=== PATIENT | male | born 1940 | race Caucasian/White ===

== ENCOUNTER → 2018-05-04 | Outpatient (CLI) | payer OTHER, BC ==
[~2018-05-04] MED LIST: ACCUNEB SO1.25 MG/1 INH; ACETAMINOPHEN325 M1 PO; ASPIRIN EC81 M1 PO; BACTRIM DS TAB1 EACH PO; BAYER CHEWABLE81 MG PO; BISACODYL SUPP10 MG RECTAL; CO Q-10100 MG PO; COLACE100 MG PO; COZAAR 50 MG TA50 M2; CYANOCOBAL1000 MCG/1 IM; FLOMAX0.4 MG PO; GERI-LANTA LIQ355 ML PO; IBUPROFEN 200200 M1 PO; IBUPROFEN 600600 M1 PO; LOSARTAN POTAS100 MG PO; MILK OF MA400 MG/5 M PO; MIRALAX17 GM PO; NIZORAL120 ML; OCUVITE TABLET1 EAC1 PO; PAROXETINE HCL20 MG PO; SENEXON-S TABL1 EACH PO; SENOKOT-S1 TA1 PO; SIMETHICON CHEW80 M1 PO; UNICOMPLEX M TA1 TA1 PO; VERAPAMIL ER240 M1 PO; VITAMIN D35000 UNI1 PO; ZOCOR40 MG PO
== END ==
LOC: SPEECH 09:59 → RAD 09:59
DX: R13.12 Dysphagia, oropharyngeal phase (principal)

== ENCOUNTER 2018-10-15 16:01 | Inpatient (IN) | payer OTHER, BC ==
[~2018-10-15] VITALS: Ht 180.3 cm; Wt 88.1 kg
--- NOTE | ~2018-10-15 | EKG ---
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 : 1940 Requested By: Naun Graff Order Number: [id number] MD: Matthieu Navarrete Measurements Intervals Powell Rate: 90 P: 71 MA: 198 QRS: 38 QRSD: 113 T: 22 QT: 356 QTc: 436 Interpretive Statements Sinus rhythm Borderline T abnormalities, anterior leads Compared to ECG 01/04/2017 16:08:04 T-wave abnormality now present Electronically Signed On 10-16-2018 7:48:40 [employer] by Matthieu Navarrete [email or web address] <ELECTRONICALLY SIGNED> By: Matthieu Navarrete MD, [facility] 10/16/18 0748 35 35 Matthieu Navarrete MD, [facility] /EPI
--- NOTE | ~2018-10-15 | HC ---
[facility] [place] [address] CONSULTATION Name: BERGERLEONARDO SINGER SNEHAL Room #: 202-P ADM IN M.R.#: [id number] Admission: 10/15/18 Attend Phys: Benjy Mario MD Discharge: Date of : 41 Report #: [id number] THIS REPORT FOR: //name// CC: Benjy Conroy HISTORY OF PRESENT ILLNESS: The patient is a 77-year-old male who was brought to the Emergency Department with cough. Apparently, the patient had been coughing for the past 2 weeks. I spoke to his . The patient has had symptoms consistent with Parkinson's disease for over a handful of years. He has been seen at by Dr. Pearson. At one point, the patient was tried on Sinemet, but when this did not work, Dr. Pearson discontinued it. The patient has had a gradual downhill course. His family members have noticed that when he is eating, he never looks down. The patient is really no longer ambulatory. His has noticed that he seems very stiff in the upper body. From time to time, he might have a tremor of his hands or even in his legs. The patient was last seen at approximately 1 year ago. He was given minerals and vitamins and that seemed to help and he was put back on Sinemet, but ultimately, the medication has really done nothing and he is no longer taking it. PAST MEDICAL HISTORY: Small-bowel obstruction, hypertension, hepatitis A gastroesophageal reflux, benign prostatic hypertrophy. PAST SURGICAL HISTORY: Colostomy with revision, bilateral rotator cuff surgery, lysis of adhesions with hernia repair. MEDICATIONS: Simvastatin 40 mg daily, paroxetine 20 mg daily, MiraLax 17 grams b.i.d., losartan 50 mg daily, B12 1000 mcg monthly, Ocuvite daily, senna b.i.d., Flomax 0.4 mg daily, vitamin D3 5000 units daily, albuterol p.r.n., magnesium hydroxide p.r.n., Tylenol p.r.n., Colace p.r.n. ALLERGIES: None. VITAL SIGNS: Temperature is 36.4, pulse rate 66, respiratory rate 18, blood pressure 120/65, bedside pulse oximetry 97% on 2 liters nasal cannula. LABORATORY WORK: White blood cell count 9.4, hemoglobin 11.6, hematocrit 34.8, platelet count 308,000. Urinalysis negative. Chemistry: Sodium 141, potassium 3.7, chloride 109, carbon dioxide 22, BUN 18, creatinine 1.1, glucose 92. NEUROLOGIC: The patient is able to look to the right and left; however, he cannot look up or down. He has intermittent closing of the right eyelid. Motor exam demonstrates rigidity in the upper and lower extremities. The patient also has axial rigidity. In other words, he has rigidity of the neck and trunk. Reflexes are symmetrical throughout. Plantar responses are mute. Coordination [address] [address] CONSULTATION Name: CELINELEONARDO SINGER [facility] Room #: 202-P [facility] IN M.R.#: [id number] Admission: 10/15/18 Attend Phys: Benjy Mario MD Discharge: Date of : 41 Report #: [id number] was not tested. The patient had a very intermittent tremor in the right upper extremity and left lower extremity. 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 I explained to his that sometimes, the patient appears with Parkinson's disease like symptoms that are unresponsive to Sinemet, which is the case here. Then, the abnormal eye movements develop. Because this patient has no vertical gaze, I do feel that he has progressive supranuclear palsy. Unfortunately, there is really no treatment for that. The patient appears to have a very poor cough reflex and is being evaluated by speech therapy. The question will be whether it is safe for the patient to continue to eat or whether he may need something like a feeding tube. However, I do not know whether the patient has advance directive or not, so perhaps this would be against his wishes. I have asked the patient to sign a release of information for his Neurology records at . I thank you for your kind referral of the patient and we will see him tomorrow. <ELECTRONICALLY SIGNED> By: Sheela Winslow DO 10/17/18 1118 [id number] [id number] Sheela Winslow DO /nt
--- NOTE | ~2018-10-15 | HC ---
[facility] [place] [address] CONSULTATION Name: CELINELEONARDO SINGER SNEHAL Room #: 202-P ADM IN M.R.#: [id number] Admission: 10/15/18 Attend Phys: Benjy Mario MD Discharge: Date of : 41 Report #: [id number] THIS REPORT FOR: //name// CC: Benjy Conroy DATE OF SERVICE: 10/19/2018 HISTORY OF PRESENT ILLNESS: A 77-year-old male with history of advanced Parkinson's disease, lives in an assisted living facility, admitted with increased shortness of breath, cough. He was diagnosed with aspiration pneumonia. Noted to have dysphagia secondary to Parkinson's disease. He was seen by Neurology and thought probably have progressive supranuclear palsy. He has been treated with IV Zosyn for his aspiration pneumonia. Speech therapy has been involved. He appears to be improving as he was on pureed honey thickened liquids and now has been advanced to mechanical soft nectar thick liquids. We are seeing him in rehabilitation medicine consultation. PAST MEDICAL HISTORY: Includes Parkinson's and a prior left femoral neck fracture in 2016. He has had a subtotal colectomy with colostomy revision. He has had bilateral rotator cuff tears. MEDICATIONS: Please see the full medication listing. This includes vitamins, herbals, and supplements. ALLERGIES: No known drug allergies. HABITS: No history of tobacco or alcohol abuse. SOCIAL HISTORY: Lives at [facility]. His lives in the independent living section, but he lives in the assisted living section. He premorbidly has utilized a wheelchair and does have a powered wheelchair with an electric reclining back. He was able to assist some with his dressing activities and using a pole, which is a floor to ceiling pole, he was able to help assist with standing. REVIEW OF SYSTEMS: Did not offer any current complaints of chest pain, shortness of breath, abdominal discomfort. PHYSICAL EXAMINATION: GENERAL: A 77-year-old white male in no obvious distress. Occasional close the right eye with some apparent ptosis and the notes that they were being considered for some Botox injections for that right eye. VITAL SIGNS: His temperature is 97.9, pulse 60, respirations 18 and blood pressure 129/83. He moves quite slowly. NEUROLOGIC: Has definite rigidity and bradykinesia. Extraocular movements a [facility] [address] [place] [address] CONSULTATION Name: CELINELEONARDO SINGER [facility] Room #: 202-P [facility] IN M.R.#: [id number] Admission: 10/15/18 Attend Phys: Benjy Mario MD Discharge: Date of : 41 Report #: [id number] significantly abnormal with the ability to gaze laterally and medially, but is unable to look superiorly or inferiorly. He can say some basic words and is able to follow basic commands without difficulty, although he does move slowly. He has evidence of cogwheeling wrists and elbows. Some resting tremulousness. Upper extremity, decreased range of motion at end range with strength probably a grade 3+/5. Lower extremities, no calf swelling. No clonus. He does have rigidity. Strength is probably a grade 3 to 3+/5. He was max assist for sit to stand, was max assist to try to take for side steps with a front-wheeled walker. IMPRESSION: A 77-year-old white male with the following problem list: 1. 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 2. Aspiration pneumonia. 3. Dysphagia secondary to the Parkinson's disease. This appears to be improving. 4. Prior colostomy revision. 5. Urinary tract infection. 6. History of bilateral rotator cuff tears. 7. Premorbidly wheelchair bound, but was able to assist some with his ADLs and mobility. PLAN: We are considering him for an acute in-hospital inpatient rehabilitation stay to further improve his functional independence with mobility, ADLs and swallowing. He does desire to return back to the assisted living facility and his would like for him to return back there as well if possible. We will be checking further regarding a possible acute in-hospital inpatient rehabilitation stay. By: 1316 1455 Dario Casarez MD /[facility]
[2018-10-15 16:01] VITALS: BP 107/60
[2018-10-15 16:19] LABS: ABSOLUTE NEUTROPHILS 11.9 thou/uL (1.4-8.2); BASOPHILS 0.4 % (0.0-2.0); EOSINOPHILS 0.3 % (0.0-3.0); HEMATOCRIT 38.5 % (42.0-52.0); HEMOGLOBIN 12.9 gm/dL (14.0-18.0); LYMPHOCYTES 6.7 % (24.0-44.0); MCH 31.7 pg (26.0-34.0); MCHC 33.7 g/dL (28.0-37.0); MCV 94.1 fL (80.0-100.0); MONOCYTES 6.4 % (1.0-8.0); PLATELET COUNT 318 thou/uL (150-400); POLYS 86.2 % (36.0-66.0); RBC 4.09 mil/uL (4.50-6.00); RDW 12.5 % (10.5-14.5); WBC 13.8 thou/uL (4.0-11.0)
[2018-10-15 16:26] LABS: CALCIUM 9.6 mg/dL (8.5-10.1); CREATININE 1.4 mg/dL (0.7-1.3)
[2018-10-15 17:32] LABS: URINE BILIRUBIN NEGATIVE (Negative); URINE BLOOD NEGATIVE (Negative); URINE CLARITY CLEAR; URINE COLOR YELLOW; URINE GLUCOSE-RANDOM* NEGATIVE (Negative); URINE KETONES NEGATIVE (Negative); URINE LEUKOCYTES-REFLEX NEGATIVE (Negative); URINE NITRITE-REFLEX NEGATIVE (Negative); URINE PROTEIN (DIPSTICK) NEGATIVE (Negative); URINE SPECIFIC GRAVITY 1.015 (1.005-1.035); URINE UROBILINOGEN 0.2 E.U./dl (0.2-1.0)
[2018-10-15 18:10] VITALS: BP 125/47
[2018-10-15 18:18] VITALS: BP 111/60
[2018-10-15 18:46] VITALS: BP 122/60
[2018-10-15 20:30] VITALS: BP 104/48
[2018-10-16 00:10] VITALS: BP 114/67
[2018-10-16 04:30] VITALS: BP 125/74
[2018-10-16 04:32] LABS: HEMATOCRIT 34.8 % (42.0-52.0); HEMOGLOBIN 11.6 gm/dL (14.0-18.0); MCH 31.2 pg (26.0-34.0); MCHC 33.3 g/dL (28.0-37.0); MCV 93.7 fL (80.0-100.0); RBC 3.71 mil/uL (4.50-6.00); RDW 12.7 % (10.5-14.5); WBC 9.4 thou/uL (4.0-11.0)
[2018-10-16 04:33] LABS: CALCIUM 8.7 mg/dL (8.5-10.1); CREATININE 1.1 mg/dL (0.7-1.3); POTASSIUM 3.7 mmol/L (3.5-5.1)
[2018-10-16 08:20] VITALS: BP 121/75
[2018-10-16] MEDS ORDERED: SINEMET 25-1001 EAC1 PO (10:19)
[2018-10-16 11:07] VITALS: BP 120/65
[2018-10-16 21:10] VITALS: BP 121/70
[2018-10-17 04:23] VITALS: BP 127/81
[2018-10-17 05:20] LABS: ABSOLUTE NEUTROPHILS 4.3 thou/uL (1.4-8.2); BASOPHILS 1.1 % (0.0-2.0); EOSINOPHILS 4.5 % (0.0-3.0); HEMATOCRIT 35.4 % (42.0-52.0); HEMOGLOBIN 11.9 gm/dL (14.0-18.0); LYMPHOCYTES 24.1 % (24.0-44.0); MCH 31.6 pg (26.0-34.0); MCHC 33.8 g/dL (28.0-37.0); MCV 93.5 fL (80.0-100.0); MONOCYTES 8.9 % (1.0-8.0); PLATELET COUNT 296 thou/uL (150-400); POLYS 61.4 % (36.0-66.0); RBC 3.78 mil/uL (4.50-6.00); RDW 12.3 % (10.5-14.5)
[2018-10-17 05:30] LABS: CALCIUM 8.6 mg/dL (8.5-10.1); POTASSIUM 3.7 mmol/L (3.5-5.1)
[2018-10-17 07:20] VITALS: BP 122/79
[2018-10-17 11:15] VITALS: BP 98/58
[2018-10-17 15:08] VITALS: BP 116/66
[2018-10-17 20:09] VITALS: BP 98/67
[2018-10-18 04:14] VITALS: BP 124/73
[2018-10-18 07:10] VITALS: BP 127/69
[2018-10-18 11:00] VITALS: BP 127/71
[2018-10-18 15:10] VITALS: BP 119/68
[2018-10-18 19:21] VITALS: BP 124/73
[2018-10-19 04:27] VITALS: BP 112/72
[2018-10-19 11:28] VITALS: BP 129/83
[2018-10-19] MEDS ORDERED: AUGMENTIN 875-1 EACH PO (14:27)
== END 2018-10-19 16:00 | DRG 871 ==
LOC: ER 16:01 → EROBS 18:02 → 2N 18:02
PROVIDERS: Hospitalist; Physician Assistant
DX: A41.9 Sepsis, unspecified organism (principal); J69.0 Pneumonitis due to inhalation of food and vomit; B15.9 Hepatitis A without hepatic coma; N17.9 Acute kidney failure, unspecified; G20 Parkinson's disease; I10 Essential (primary) hypertension; K21.9 Gastro-esophageal reflux disease without esophagitis; R29.6 Repeated falls; E53.8 Deficiency of other specified B group vitamins; N40.0 Benign prostatic hyperplasia without lower urinary tract symptoms; Z93.3 Colostomy status; Z79.899 Other long term (current) drug therapy; Z99.3 Dependence on wheelchair
CPT/HCPCS: 10081

== ENCOUNTER 2018-10-19 14:25 | Inpatient (IN) | payer OTHER, BC ==
[~2018-10-19] VITALS: Ht 180.3 cm; Wt 88.1 kg
--- NOTE | ~2018-10-19 | PLAN ---
[facility] [place] [address] REHAB UNIT PLAN OF CARE Name: LEONARDO BERGER III Room #: 506-1 ADM IN M.R.#: [id number] Admission: 10/19/18 Attend Phys: Dario Casarez MD Discharge: Date of : 41 Report #: [id number] THIS REPORT FOR: //name// CC: Dario Conroy DATE OF SERVICE: 10/21/2018 SUBJECTIVE: The patient is seen back today in followup. He is in no distress. Temperature 97.9, pulse 65, respirations 20, blood pressure 120/77. Lungs sound clear, somewhat diminished. He has the severe extraocular movement deficits with inability to look up or down. He is cooperative with therapies. Transfers are max assist. He was able to ambulate 5 feet in the parallel bars max assist, lower body dressing is dependent with upper body dressing, max assist. He has moderate to severe comprehensive deficits. He is on a pureed diet with nectar thickened liquids. ASSESSMENT: 1. 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 2. Aspiration pneumonia. 3. Dysphagia secondary to Parkinson's disease. 4. Prior colostomy revision. 5. Urinary tract infection. 6. History of bilateral rotator cuff tears. 7. Premorbidly wheelchair bound, but was able to assist some with ADLs and mobility. PLAN: The overall plan of care is based on the preadmission screen, post-admission physician evaluation and information garnered from therapy assessments. 1. Estimated length of stay is probably at least 2-3 weeks. 2. Medical prognosis is reasonably good. 3. Anticipated interventions includes the interdisciplinary acute inpatient rehabilitation program with PT, OT, speech rehab nursing assisting regarding medication management, skin care prophylaxis, bowel and bladder issues and nursing education. Case management is involved as well as the interdisciplinary acute rehabilitation team and the personal consultant physicians. 4. Anticipated functional outcomes would be for the patient to hopefully improve with his basic transfers, so that he is at a level that they can handle him at the assisted living as well as assisting more with his ADLs. He also needs to hopefully improve with his diet where he reaches a dietary level that can be handled within his assisted living. We tried him on a mechanical soft, but he is currently been downgraded to a pureed at the current time along with nectar thickened liquids. 5. Discharge destination would be to his assisted living facility. 6. Expected therapy by discipline includes PT, OT and speech 1 [place] [address] REHAB UNIT PLAN OF CARE Name: LEONARDO BERGER III Room #: 506-1 [facility] IN [facility].#: [id number] Admission: 10/19/18 Attend Phys: Dario Casarez MD Discharge: Date of : 41 Report #: [id number] each five days a week throughout the duration of the acute inpatient rehabilitation stay. <ELECTRONICALLY SIGNED> By: Dario Casarez MD 10/29/18 1144 0841 1422 Dario Casarez MD /RUSTY
--- NOTE | ~2018-10-19 | HC ---
[facility] [place] [address] CONSULTATION Name: LEONARDO BERGER III Room #: 506-1 ADM IN M.R.#: [id number] Admission: 10/19/18 Attend Phys: Dario Casarez MD Discharge: Date of : 41 Report #: [id number] THIS REPORT FOR: //name// CC: Dario Patele Diannenohemi DATE OF SERVICE: 10/24/2018 Neurobehavioral Status Exam ATTENDING PHYSICIAN: Dario Casarez MD OUTSIDE MACHINIST HELPER: Tyler Ayers, PhD CLINICAL PRESENTATION: The patient is a 78-year-old male, admitted to the rehabilitation unit at [facility] for a comprehensive inpatient rehabilitation program to improve functional mobility, activities of daily living, self-care, and mental status secondary to deficits from aspiration pneumonia and severe Parkinson's disease. 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 A complete description of his medical condition, history, and medications can be found in his medical record. Neuropsychological consultation was requested to provide assistance in the assessment of cognitive and emotional status and to provide recommendations as necessary and services as needed. Prior to this most recent admission, he had been living with his in an assisted living placement. He requires assistance for basic and instrumental activities of daily living. During my interview, the patient was unable to provide description of his current level of activity, as well as the reason for hospitalization or family and recent biographical and historical information. His verbal expression is very slow and marked by severe bradykinesia. Decreased auditory comprehension along with severe deficits in verbal expression are noted. TECHNIQUES UTILIZED: Clinical interview, review of medical records, staff consultation and behavioral observation, Mini Mental Status Exam 2 brief version. EXAMINATION FINDINGS: The patient has severe deficits in verbal expression and bradykinesia, which interfere with his ability to process and express himself. He was 2/5 for orientation to time. The patient was 5/5 for orientation to [facility] [address] [place] [address] CONSULTATION Name: LEONARDO BERGER [facility] Room #: 506-1 ADM IN ..#: [id number] Admission: 10/19/18 Attend Phys: Dario Casarez MD Discharge: Date of : 41 Report #: [id number] He was 0/3 for initial registration and immediate recall of 3 items. The patient is showing marked deficits in cognitive functioning. He was able to read and follow a single command. He was 0/5 for serial 7's. The patient's presentation suggests severe cognitive deficits with initial encoding, immediate recall, sustained concentration, and divided attention and executive functioning. Family has not been contacted regarding pre-morbid functioning. 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 Unspecified depressive disorder. RECOMMENDATIONS: The patient has been getting antidepressant medication to assist with mood. A followup interview with his family will be of benefit to clarify the severity of his cognitive deficits and difference between current functioning at baseline prior to his hospitalization. Family were not available at the time of this dictation. The patient will require 24-hour care that includes assistance with financial, nutrition, and medical self-management. 24-hour care should structure and supervision to encourage participation in meeting environmental expectations will be necessary. Thank you very much for allowing me to provide the consultation on this patient. <ELECTRONICALLY SIGNED> By: Tyler Ayers, PhD 11/01/18 1621 1521 2141 Tyler Ayers, PhD /nt
--- NOTE | ~2018-10-19 | HC ---
[facility] [place] [address] CONSULTATION Name: LEONARDO BERGER III Room #: 506-1 ADM IN M.R.#: [id number] Admission: 10/19/18 Attend Phys: Dario Casarez MD Discharge: Date of : 41 Report #: [id number] THIS REPORT FOR: //name// CC: Dario Conroy DATE OF SERVICE: 10/29/2018 PALLIATIVE CARE CONSULTATION: REQUESTING PHYSICIAN: Dr. Casarez and Dr. Rubio. This is a palliative care consultation requested due to history of progressive supranuclear palsy. As you know, the patient is a 78-year-old male who presented initially to [facility] on 10/15/2018 from his assisted living at the [facility] for suspected aspiration pneumonia. He has a history of supranuclear palsy as suspected as he had not responded to medication previously and due to current signs. The patient has had difficulty with expressive aphasia. Additionally, he has had recurrent episodes of dysphagia per his family choking episodes. Most recently, he is now on nectar thin liquids and pureed diet. Their overall concern is whether or not he would be able to have a return to the assisted living and what his overall prognosis is at this time. The patient is communicative; however, it is very minimal. His verbal communication is very difficult to understand, although he can use cues as well. He denies significant pain at this time, appears to not have air hunger. He does admit to overall weakness and does respond appropriately to many of the questions today. PAST MEDICAL HISTORY: Significant for supranuclear palsy, history of likely aspiration, dysphagia, right eye ptosis, obstructive uropathy, colostomy placement with stoma hernia, depression, hyperlipidemia, history of small-bowel obstruction. PAST SURGICAL HISTORY: He has had a rotator cuff surgery on the right side. MEDICATIONS: Currently, albuterol, B12, guaifenesin, omeprazole, Lovenox, senna, doxazosin, D3, Paxil, Lipitor. ALLERGIES: No known drug allergies. CODE STATUS: DNR. FAMILY HISTORY: Noncontributory. [address] [address] CONSULTATION Name: LEONARDO BERGER [facility] Room #: 506-1 ADM IN M.R.#: [id number] Admission: 10/19/18 Attend Phys: Dario Casarez MD Discharge: Date of : 41 Report #: [id number] SOCIAL HISTORY: No current smoking, drinking, or illicit drug use. Spouse is present as well as multiple family members including 2 sons and daughter. REVIEW OF SYSTEMS: Again, difficult to obtain at this time, but denied. Review of systems obtained in [facility]. PHYSICAL EXAMINATION: VITAL SIGNS: Temperature 36.7, pulse 66, respirations 28, blood pressure 121/71, 93%. He was currently on room air. GENERAL: The patient appears to be alert. His attention level at times may be altered, but he does answer many questions appropriately. HEENT: He has no scleral icterus, no conjunctival injection. CARDIOVASCULAR: Regular rate and rhythm without murmur. LUNGS: Clear to auscultation bilaterally. No wheezes, rales or rhonchi, though did not auscultate fully on lower lobes. ABDOMEN: Appears soft and nontender to palpation x 4. EXTREMITIES: He does not have significant cogwheeling, although he demonstrates some rigidity upper extremities bilaterally. Certainly, he demonstrates rigidity in lower extremities. He has some difficulty with overall initiation of movement. His core strengthening overall causes some difficulty with movement. He requires significant assistance to sit at bedside. The patient does appear to have overall loss of strength. NEUROLOGIC: He is very quiet in his speech and also has difficulty with expressing words overall. LABORATORY DATA: 10/15/2018, his creatinine was 1.4, hemoglobin 12.9. ASSESSMENT AND PLAN: 1. Probable supranuclear palsy. Appreciate Dr. Rubio's input with regards to his overall condition. I agree that this carries a poor prognosis, whether this is Parkinson's or supranuclear palsy at this time. Obviously, the patient has not responded to medication in the past likely further clarifying that this is not a typical presentation of Parkinson's. I did have a significant discussion with family with regards to his code status confirmed as DNR code status regarding the need for long-term care in the future, regardless of whether he were to progress towards a [facility] facility or whether he was going to hospice care services. I did explain thoroughly what [facility]cc involved as well as what hospice care involved as well as what palliative care involved. Did discuss that he would likely benefit significantly from hospice at some point in the near future. Did discuss that he does certainly qualify for their services at this point in time given his overall condition, I believe that he would qualify under his movement disorder. I did discuss that the patient at this current point in time may additionally benefit from some therapy, but it is difficult to tell. They feel that he has made some strides with regards to his movement and possibly with regards to communication that may be as a result of [facility] [address] [place] [address] CONSULTATION Name: LEONARDO BERGER III Room #: 506-1 ADM IN M.R.#: [id number] Admission: 10/19/18 Attend Phys: Dario Casarez MD Discharge: Date of : 41 Report #: [id number] improvement from his previous delirium, it is difficult to say. I did discuss it is very unlikely that we will see significant strides or improvement in his overall condition. Did discuss if we are pursuing [facility]cc that it would likely be beneficial to pursue in a location where he could transition to long-term care. I did discuss with the patient himself that he would need to pursue long-term care and could no longer be in an assisted living at this time due to the safety of the facility that he was currently at and the addition of additional needs that he will have. I spent approximately 1-1/2 hours discussing with both family, with patient and with case management. I also discussed potential facilities for the patient. I discussed again what overall care options we had that also included a PEG tube in the future. I discussed in his particular case in the case of patients that have progressive neurologic disease, the PEG tube has not been shown to be improving both quality of life and of the longevity. I discussed that there are additional benefits from seeking comfort and even he may in the future if desired seek to change his pureed diet, although he seems to be tolerating well at this time. 2. Aspiration pneumonia and dysphagia. Again, reason for presentation. Discussed this would be likely the origin of further illness in the future and discussed at that point we would maybe consider whether or not he would require antibiotics and whether that would be in his DICTATION ENDS HERE. By: [id number] Phoenix Ricks DO /lary
--- NOTE | ~2018-10-19 | H ---
[facility] [place] [address] HISTORY AND PHYSICAL Name: LEONARDO BERGER III Room #: 506-1 ADM IN M.R.#: [id number] Admission: 10/19/18 Attend Phys: Dario Casarez MD Discharge: Date of : 41 Report #: [id number] THIS REPORT FOR: //name// CC: Dario Conroy DATE OF SERVICE: 10/19/2018 POSTADMISSION PHYSICIAN EVALUATION HISTORY OF PRESENT ILLNESS: Please see my consult note of this patient from yesterday and Jenni Elmore's history and physical. The patient has advanced Parkinson's disease. He was living in an assisted living facility, admitted with a diagnosis of aspiration pneumonia. Noted to have dysphagia secondary to Parkinson's disease. He was seen by Neurology and thought to probably have progressive supranuclear palsy. He was treated with IV Zosyn for his aspiration pneumonia. He was advanced to nectar thickened liquids. He has had a significant functional decline in his premorbid status and he has not been admitted for acute in-hospital inpatient rehabilitation. PAST MEDICAL HISTORY, ALLERGIES, AND SOCIAL HISTORY: Please see my consult from yesterday as well as Jenni Elmore's dictation. MEDICATIONS: Please see the full medication listing. This includes vitamins, herbals, and supplements. REVIEW OF SYSTEMS: No current complaints of chest pain, shortness of breath or abdominal discomfort. Again, please see his full H and P dictation. PHYSICAL EXAMINATION: GENERAL: A 77-year-old male, who is in no obvious distress. VITAL SIGNS: Temperature 98.3, pulse 66, respirations 20, blood pressure 127/89. HEENT: The patient is in no distress. He has evidence of masked facies. He moves slowly. Limited verbalizations. Extraocular movements were significantly abnormal with ability to gaze laterally and medially, but unable to look superiorly or inferiorly. CHEST: Decreased breath sounds. CARDIOVASCULAR: Sounded regular rate and rhythm. ABDOMEN: He has the colostomy. NEUROLOGIC: He has some resting tremulousness of his upper extremities with cogwheeling wrists and elbows, move slowly with decreased range of motion at end range. Strength is probably a 3+/5 upper extremities. Lower extremities, he does have rigidity. Strength is probably a grade 3-3+/5. Max assist sit to stand, max assist to try to take a few steps with a front-wheeled walker. [facility] [address] [place] [address] HISTORY AND PHYSICAL Name: LEONARDO BERGER III Room #: 506-1 [facility] IN ..#: [id number] Admission: 10/19/18 Attend Phys: Dario Casarez MD Discharge: Date of : 41 Report #: [id number] ASSESSMENT: A 77-year-old white male with the following problem list: 1. 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 2. Aspiration pneumonia. 3. Dysphagia secondary to Parkinson's disease. 4. Prior colostomy revision. 5. Urinary tract infection. 6. History of bilateral rotator cuff tears. 7. Premorbidly wheelchair bound, but able to assist some with ADLs and mobility. PLAN: The patient admitted for acute in-hospital inpatient rehabilitation. From a post admission physician evaluation perspective there are no relevant changes since the preadmission screening. Please see the review of the prior and current medical and functional conditions and comorbidities. Please see the patient's previous and current functional status. As far as risk of complications, the patient has multiple medical comorbidities as noted above. Initial plan of care involves the interdisciplinary acute inpatient rehabilitation program with goal of maximizing the patient's functional independence, so that he can hopefully return back to his prior living situation. He was living in an assisted living facility in the goals to hopefully achieve a functional level that he can return back there. Prognosis is reasonably good with estimated length of stay probably at least 2-3 weeks. Potential barriers would include his multiple medical comorbidities and decreased functional status. We need to get him assisting with some of his dressing activities, try to do some basic standing and improvement with transfers, so that he can again be cared for in the assisted living situation. This diagnosis is appropriate for an acute in-hospital inpatient rehabilitation stay. He meets medical necessity criteria. He does have the tolerance for therapies and has appropriate discharge goals back to the home setting. <ELECTRONICALLY SIGNED> By: Dario Casarez MD 10/29/18 1144 1147 1207 Dario Casarez MD /nt
--- NOTE | ~2018-10-19 | H ---
[facility] [place] [address] HISTORY AND PHYSICAL Name: LEONARDO BERGER III Room #: 506-1 ADM IN M.R.#: [id number] Admission: 10/19/18 Attend Phys: Dario Casarez MD Discharge: Date of : 41 Report #: [id number] THIS REPORT FOR: //name// CC: Dario Conroy DATE OF SERVICE: 10/19/2018 HISTORY OF PRESENT ILLNESS: This is a 77-year-old gentleman who presented to the hospital with increased shortness of breath and cough. He was found to have aspiration pneumonia and dysphagia secondary to his Parkinson's disease premorbidly. He was evaluated by Neurology and thought to have probable progressive supranuclear palsy. He has been treated with IV antibiotics and has been transitioned to an oral antibiotic. He is on a pureed diet with thickened liquids. Due to his change in functional mobility, he has admitted to acute inpatient rehabilitation. Today, the patient reports improvement of shortness of air and cough. He denies chest pain. He denies abdominal pain or nausea. He denies constipation or dysuria. His ostomy is having actually more liquid stool than is normal for him. He denies leg swelling. He denies any acute pain. He denies headache or dizziness. PAST MEDICAL HISTORY: Premorbid Parkinson's, history of left femoral neck fracture in 2016, subtotal colectomy with colostomy revision, history of rotator cuff repair and bilateral rotator cuff tears. ALLERGIES: No known drug allergies. MEDICATIONS: Vitamin B12 1000 mcg IM monthly, MiraLax 17 grams at dinner, senna 8.6 mg twice a day p.r.n., doxazosin 1 mg at breakfast, Paxil 20 mg daily, Ocuvite eye drops daily, vitamin D 5000 units daily, atorvastatin 20 mg at bedtime, Augmentin 875 twice a day for 10 doses, milk of mag p.r.n., albuterol p.r.n., Colace p.r.n., Tylenol 650 q.4h. p.r.n. CODE STATUS: No code. HABITS: No history of tobacco, alcohol or illicit drug use. SOCIAL HISTORY: The patient lives at [facility]. His lives in the independent living at [facility]. He premorbidly utilized a wheelchair and does have a power wheelchair with an electric reclining back. He was able to assist with his dressing and with standing by using a floor to ceiling pole. His IADLs were provided. REVIEW OF SYSTEMS: Remainder of his 14-point review of systems is negative except as listed in HPI. [address] [address] HISTORY AND PHYSICAL Name: LEONARDO BERGER [facility] Room #: 506-1 ADM IN M.R.#: [id number] Admission: 10/19/18 Attend Phys: Dario Casarez MD Discharge: Date of : 41 Report #: [id number] PHYSICAL EXAMINATION: VITAL SIGNS: Blood pressure 127/89, respirations 20, pulse is 66, temperature 98.3, 95% oxygen on room air. GENERAL: He is awake, alert. He is oriented. He is in no acute distress. HEAD: Normocephalic. EYES: He tends to keep his right eye shut, he says due to discomfort. After further questioning, his daughter reports that he saw Ophthalmology prior to admission and they were going to do a Botox injection for the right eye to see if it would improve the right eyelid droop. EOMs are intact. ENT: No sinus tenderness, no pharyngitis. CHEST: Lungs are diminished in the bases. HEART: Regular rate and rhythm. ABDOMEN: Bowel sounds are positive, soft, nontender. He does have a left colostomy with loose liquid stool output. GENITOURINARY: No CVA tenderness. He was wearing a male external catheter to dependent drainage overnight due to urinary incontinence. EXTREMITIES: No lower extremity edema. He has significant rigidity in bilateral upper and lower extremities. He has negative Homans sign. He was unable to lift lower extremities and to gravity while sitting in the wheelchair. Bilateral upper extremities, he has decreased functional range of motion due to bilateral rotator cuff tears. He does have noted tremors in his hands, positive cogwheeling. NEUROLOGIC: He can follow basic commands, very soft spoken speech, transfers sit to stand is max assist of 2. SKIN: Warm, dry and intact. LABORATORY DATA: From 10/20/2018, WBC 7.2, hemoglobin 13, hematocrit 38.4, platelets 346. Sodium 139, potassium 3.9, BUN 16, creatinine 1.0, calcium 9.3. ASSESSMENT: 1. 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 2. Aspiration pneumonia. 3. Dysphagia secondary to the Parkinson's disease. 4. Urinary tract infection. 5. Right eye ptosis. 6. Prior colostomy. 7. History of bilateral rotator cuff tears. 8. Premorbid wheelchair bound status. 9. Urinary retention. 10. Depression. 11. Hyperlipidemia. PLAN: The patient has been admitted to acute inpatient rehabilitation unit for physical, occupational and speech therapies. He would like to return to assisted living apartment and to do so, he will have to be on a regular solid consistency diet. His facility cannot provide a pureed consistency and [address] [place] [address] HISTORY AND PHYSICAL Name: LEONARDO BERGER III Room #: 506-1 ADM IN M.R.#: [id number] Admission: 10/19/18 Attend Phys: Dario Casarez MD Discharge: Date of : 41 Report #: [id number] therefore, he would have to move. He will have his hospitalist services continue to follow for acute medical management. He will have geriatric services follow along with Neuropsychology consultation. He will have a team conference on Friday for discharge planning needs. He will continue his current diet with nectar thick liquids. Please see extensive orders. <ELECTRONICALLY SIGNED> By: AIDAN Menezes 10/30/18 1508 [id number] [id number] AIDAN Menezes /nt
[~2018-10-19 14:25] MED LIST changes: +SINEMET 25-1001 EAC1 PO
[2018-10-19] MEDS ORDERED: AUGMENTIN 875-1 EACH PO (14:27)
[2018-10-19 19:45] VITALS: BP 120/85
[2018-10-19 20:07] VITALS: BP 129/83
[2018-10-20 06:01] LABS: HEMATOCRIT 38.4 % (42.0-52.0); MCH 31.7 pg (26.0-34.0); MCHC 33.9 g/dL (28.0-37.0); MCV 93.3 fL (80.0-100.0); RBC 4.11 mil/uL (4.50-6.00); RDW 12.6 % (10.5-14.5); WBC 7.2 thou/uL (4.0-11.0)
[2018-10-20 06:08] LABS: CALCIUM 9.3 mg/dL (8.5-10.1); POTASSIUM 3.9 mmol/L (3.5-5.1)
[2018-10-20 07:20] VITALS: BP 127/89
[2018-10-20 19:16] VITALS: BP 120/77
[2018-10-21 07:30] VITALS: BP 100/61
[2018-10-21 19:47] VITALS: BP 120/66
[2018-10-22 07:30] VITALS: BP 115/72
[2018-10-22 09:15] VITALS: BP 115/79
[2018-10-22 20:27] VITALS: BP 121/82
[2018-10-23 08:30] VITALS: BP 131/78
[2018-10-23 20:10] VITALS: BP 140/86
[2018-10-24 20:20] VITALS: BP 120/70
[2018-10-25 07:30] VITALS: BP 143/73
[2018-10-25 19:32] VITALS: BP 125/71
[2018-10-26 05:46] LABS: BASOPHILS 1.4 % (0.0-2.0); EOSINOPHILS 7.9 % (0.0-3.0); HEMATOCRIT 39.6 % (42.0-52.0); HEMOGLOBIN 13.1 gm/dL (14.0-18.0); LYMPHOCYTES 39.6 % (24.0-44.0); MCH 30.9 pg (26.0-34.0); MCHC 33.2 g/dL (28.0-37.0); PLATELET COUNT 328 thou/uL (150-400); POLYS 41.1 % (36.0-66.0); RBC 4.26 mil/uL (4.50-6.00); RDW 12.8 % (10.5-14.5); WBC 7.3 thou/uL (4.0-11.0)
[2018-10-26 05:59] LABS: CALCIUM 9.4 mg/dL (8.5-10.1)
[2018-10-26 06:51] VITALS: BP 126/69
[2018-10-26 19:57] VITALS: BP 126/67
[2018-10-27 08:57] VITALS: BP 121/63
[2018-10-27 19:31] VITALS: BP 126/83
[2018-10-28 09:11] VITALS: BP 129/76
[2018-10-28 19:29] VITALS: BP 121/77
[2018-10-29 07:30] VITALS: BP 117/85
[2018-10-29 20:45] VITALS: BP 120/69
[2018-10-30 20:00] VITALS: BP 125/78
[2018-10-31 07:30] VITALS: BP 124/86
[2018-10-31 20:15] VITALS: BP 130/72
[2018-11-01 07:40] VITALS: BP 120/72
[2018-11-01 20:01] VITALS: BP 116/68
[2018-11-02 09:00] VITALS: BP 123/71
[2018-11-02 19:38] VITALS: BP 123/76
[2018-11-03 09:30] VITALS: BP 121/83
[2018-11-03 19:42] VITALS: BP 108/70
[2018-11-04 07:55] VITALS: BP 124/67
[2018-11-04 08:55] VITALS: BP 124/67
[2018-11-04] MEDS ORDERED: ARTIFICIAL TEA1 EACH OPHTHALMIC (09:47)
== END 2018-11-04 15:40 | DRG 56 ==
PROVIDERS: Nurse Practitioner; Physical Medicine & Rehabilitation
DX: G20 Parkinson's disease (principal); J69.0 Pneumonitis due to inhalation of food and vomit; N39.0 Urinary tract infection, site not specified; R13.10 Dysphagia, unspecified; E78.5 Hyperlipidemia, unspecified; R53.81 Other malaise; Z66 Do not resuscitate; H02.401 Unspecified ptosis of right eyelid; R33.9 Retention of urine, unspecified; F32.9 Major depressive disorder, single episode, unspecified; K43.5 Parastomal hernia without obstruction or gangrene; F02.80 Dementia in other diseases classified elsewhere, unspecified severity, without behavioral disturbance, psychotic disturbance, mood disturbance, and anxiety; Z99.3 Dependence on wheelchair; Z93.3 Colostomy status; G83.9 Paralytic syndrome, unspecified
CPT/HCPCS: 10112

== ENCOUNTER 2018-11-25 20:08 | Inpatient (IN) | payer OTHER, BC ==
[~2018-11-25] VITALS: Ht 177.8 cm; Wt 83.0 kg
--- NOTE | ~2018-11-25 | HC ---
[facility] [place] [address] CONSULTATION Name: BERGERLEONARDO LUCRECIA III Room #: 213-P ADM IN M.R.#: [id number] Admission: 11/25/18 Attend Phys: Abdirahman Mace MD Discharge: Date of : 41 Report #: [id number] THIS REPORT FOR: //name// CC: Abdirahman Conroy Palliative Care Consultation REASON FOR CONSULTATION: Palliative care. CHIEF COMPLAINT: The patient is here for pneumonia. HISTORY OF PRESENT ILLNESS: The patient is a 78-year-old male who presented on the for what we suspect is aspiration pneumonia of recurrent origin, likely due to his longstanding history of supranuclear palsy. Unfortunately, the patient has had a recent admission for pneumonia of aspiration type and at that time, I had consulted on this patient's care, had discussed what available measures were for the patient. They decided to pursue a fci placement at [facility]. He was advancing his diet, but unfortunately appeared to have an aspiration episode, although this was unwitnessed certainly. The patient has subsequently had worsening of his mental status and also worsening dyspnea, although he is stable today on nasal cannula. The patient's family requested consultation upon his admission. They are concerned about him having not had a significant recovery while doing rehabilitation. PAST MEDICAL HISTORY: This is significant for supranuclear palsy. Also history of recurrent aspiration pneumonia. He has a history of small bowel obstructions and has had a colostomy placed. Also history of hypertension, BPH. PAST SURGICAL HISTORY: Right rotator cuff and left rotator cuff repairs, hernia repair in 2014, colostomy placement and reversal. SOCIAL HISTORY: Never smoker, never alcohol use. Spouse is present at today's interview, as well as son and other family members. MEDICATIONS: Prior to admission, DuoNebs, simvastatin, Paxil 20 mg daily, Flomax 0.4 mg daily, albuterol. ALLERGIES: No known drug allergies. CODE STATUS: DNR. REVIEW OF SYSTEMS: Difficult to obtain given his paucity of speech and also dysphonia, but he denies pain of chest. He denies shortness of breath. Denies abdominal pain. Denies nausea. Denies constipation. PHYSICAL EXAMINATION: [facility] [address] [place] [address] CONSULTATION Name: LEONARDO BERGER [facility] Room #: 213-[facility] IN [facility].#: [id number] Admission: 11/25/18 Attend Phys: Abdirahman Mace MD Discharge: Date of : 41 Report #: [id number] VITAL SIGNS: Temperature 36.7, pulse 80, respirations 20, blood pressure 139/79, 94% on nasal cannula. GENERAL: The patient is alert. He appears to be oriented at least to self. It is difficult to say otherwise on place or time. HEENT: He has difficulty opening his right eye, but is able to do so with great effort. Again, he has masked expressions currently. NEUROLOGIC: He does have cogwheeling present and some rigidity bilaterally upper extremity and the presence of tremor noted. CARDIOVASCULAR: He has regular rate and rhythm at this time. RESPIRATORY: He has diffuse rales and rhonchi throughout his lungs. LABORATORY DATA: Reviewed and noted to have hemoglobin 12.8, potassium 3.2, creatinine of 1.2. ASSESSMENT AND PLAN: 1. Pneumonia, suspect aspiration, extensive discussion of approximately 45 minutes upon his discussion of recurrent admission if he would desire hospitalization, if he desires to have further therapy, if he desires to have antibiotics in the future, if recurrent aspiration, discussed the high likelihood of this occurring. Given his present medical condition and given the recurrence of aspiration that we witnessed, discussed extensively with his family many questions regarding this. He still desires no feeding tube. Family is also agreeing with this. They desire to continue rehabilitation potentially, but they are deciding on this at this point in time. We have discussed hospice extensively. They appear to be amenable to hospice after her rehab admission. They did not at this point in time request to have rehospitalization in the future and did not desire to have changed from pureed and thickened fluids and therefore may not have changes back to mechanical soft as he was previous. He appears to tolerate this diet well and does not have any concerns about the quality of life associated with this. I discussed again all options present. They will be deciding further with regards to this, but do desire to have treatment for this current pneumonia until felt to be ready for discharge to a skilled facility. They do desire to return to [facility], but again I do believe that they would not request rehospitalization in the future. 2. Supranuclear palsy. Again, discussed the likelihood of this recurring. They are understanding of this and desire interventions as discussed above. He is in no significant discomfort at this time, so I do not believe any changes in medical care are needed currently. The patient appears to have understanding of this, although it is difficult to say how much he is getting at this current point in time. His family is certainly understanding of it and I have discussed extensively with them with regards to their questions. [facility] [address] [place] [address] CONSULTATION Name: LEONARDO BERGER III Room #: 213-P ADM IN M.R.#: [id number] Admission: 11/25/18 Attend Phys: Abdirahman Mace MD Discharge: Date of : 41 Report #: [id number] Thank you very much for this consultation. By: [id number] Phoenix Ricks DO /nt
[2018-11-25 20:08] VITALS: BP 104/66
[~2018-11-25 20:08] MED LIST changes: +ARTIFICIAL TEA1 EACH OPHTHALMIC; +AUGMENTIN 875-1 EACH PO
[2018-11-25 20:28] LABS: ABSOLUTE NEUTROPHILS 6.7 thou/uL (1.4-8.2); BASOPHILS 0.5 % (0.0-2.0); EOSINOPHILS 0.3 % (0.0-3.0); HEMATOCRIT 38.2 % (42.0-52.0); HEMOGLOBIN 12.8 gm/dL (14.0-18.0); LYMPHOCYTES 22.9 % (24.0-44.0); MCH 31.1 pg (26.0-34.0); MCHC 33.4 g/dL (28.0-37.0); MCV 93.1 fL (80.0-100.0); MONOCYTES 9.4 % (1.0-8.0); PLATELET COUNT 267 thou/uL (150-400); POLYS 66.9 % (36.0-66.0); RDW 13.2 % (10.5-14.5)
[2018-11-25 20:37] LABS: ANION GAP 10 mmol/L (7-16); BUN 19 mg/dL (7-18); CALCIUM 9.4 mg/dL (8.5-10.1); CHLORIDE 105 mmol/L (98-107); CO2 24 mmol/L (21-32); CREATININE 1.2 mg/dL (0.7-1.3); GLUCOSE 117 mg/dL (74-106); POTASSIUM 3.2 mmol/L (3.5-5.1); SODIUM 139 mmol/L (136-145)
[2018-11-25 20:37] LABS: BE(vivo) -2.3 mmol/L (-2 to +3); HCO3 20.9 mmol/L (22.0-26.0); PCO2 31.4 mmHg (35.0-45.0); PO2 64.5 mmHg (80.0-100.0); pH 7.441 (7.360-7.450); sO2 93.6 % (92.0-98.0)
[2018-11-25 20:49] LABS: ALBUMIN 3.1 g/dL (3.4-5.0); SGOT 22 U/L (15-37); SGPT 17 U/L (30-65); TOTAL BILIRUBIN 0.5 mg/dL (<0.1-1.0); TOTAL PROTEIN 7.3 g/dL (6.4-8.2); TROPONIN-I <0.06 ng/mL (<0.06)
[2018-11-25 22:00] LABS: URINE CLARITY CLEAR; URINE COLOR YELLOW
[2018-11-25 22:01] LABS: URINE BILIRUBIN NEGATIVE (Negative); URINE BLOOD 1+ (Negative); URINE GLUCOSE-RANDOM* NEGATIVE (Negative); URINE KETONES TRACE (Negative); URINE LEUKOCYTES-REFLEX NEGATIVE (Negative); URINE NITRITE-REFLEX NEGATIVE (Negative); URINE PROTEIN (DIPSTICK) NEGATIVE (Negative)
[2018-11-25 22:10] LABS: BACTERIA-REFLEX 1-9 Few /HPF (None Seen); MUCUS 0-3 Light strn/LPF (None Seen); SQUAMOUS 0-3 Few /LPF (0-3); URINE WBC-REFLEX 0-5 Rare /HPF (0-5)
[2018-11-25 22:11] LABS: CASTS None Seen /LPF (None Seen); CRYSTALS None Seen /LPF (None Seen)
[2018-11-26] VITALS (7 sets, daily range): BP systolic 104–139; BP diastolic 60–79
[2018-11-26] MEDS ORDERED: IPRATROPIU0.2 MG/1 M INH (02:54)
--- NOTE | 2018-11-26 02:55 | NUR ---
PT ARRIVED UNIT AT ABOUT 0130. PT AWAKE BUT UNABLE TO ANSWER QUESTIONS OR EFFECTIVELY FOLLOW COMMANDS. DAUGHTER AT BEDSIDE AND ABLE TO ANSWER/PROVIDE SOME INFORMATION. PT ABLE TO GESTURE WITH THUMB IF IN PAIN. NO PAIN INDICATED. PT SLEEPING. WILL CONTINUE TO CLOSLY MONITOR.
--- NOTE | 2018-11-26 08:13 | EKG ---
[place] [address] [address] [facility] [place] [address] ELECTROCARDIOGRAM REPORT Name: LEONARDO BERGER [facility] Room #: 213-P ADM IN M.R.#: [id number] Admission: 11/25/18 Attend Phys: Abdirahman Mace MD Discharge: Date of : 41 Report #: [id number] THIS REPORT FOR: //name// [facility] ED Test Date: 2018-11-25 Test Time: 20:21:10 Pat Name: LEONARDO BERGER Department: Room: 213 Gender: M Refurbish Technician: Marlen WINSTON : 1940 Requested By: Savannah Cueva Order Number: [id number] MD: Matthieu Navarrete Measurements Intervals [place] Rate: 87 P: 51 IN: 203 QRS: 45 QRSD: 114 T: 38 QT: 384 QTc: 462 Interpretive Statements Sinus rhythm Abnormal R-wave progression, early transition nonspecific T wave abnormality Baseline wander in lead(s) V3 Compared to ECG 10/15/2018 16:36:06 No gross changes Electronically Signed On 11-26-2018 8:12:52 FINGERPRINTER by Matthieu Navarrete [email or web address] <ELECTRONICALLY SIGNED> By: Matthieu Navarrete MD, [facility] 11/26/18811 20 20 Matthieu Navarrete MD, [facility] /EPI
--- NOTE | 2018-11-26 15:12 | NUR ---
ASSUMED CARE AT SHIFT CHANGE. PT ALERT, ANSWERING YES AND NO QUESTIONS. PER FAMILY THIS IS PT'S BASELINE COGNITIVE STATUS. PT CONTINUES WITH CONGESTIVE COUGH, POOR EFFORT WITH NO SECRETIONS EXPELLED BY COUGHING. SPEECH EVAL TODAY, REMAINS NPO PER SPEECH FOR TODAY, WILL EVALUATE AGAIN TOMORROW. PHYSICAL THERAPY TO EVAL PT TODAY WELL. FAMILY REQUESTING DR ROSS CONSULT ALSO DUE TO PT STATUS. IV ATB CONTINUE, ASSESSMENTS PER CHART. NO BM TODAY SO FAR. WILL BLADDER SCAN AT 1600 IF NO VOIDING.
--- NOTE | 2018-11-26 15:28 | NUR ---
Case opened to follow for dc planning. Sanitation Worker visited with the pt, his spouse and his brother and sister who were at bedside today. The pt confirms he is currently in the skilled rehab at [facility]. He was dc'd there from here on 11/04/18. He plans on returning there at [place] to continue his therapy. Will ask for pt/ot evals and have the dc conservation planner fax admissions an update. Sanitation Worker confirmed with [facility] that the pt is still using his skilled medicare benefits at this time. They can accept him for readmission when medically stable. Will follow.
--- NOTE | 2018-11-26 16:46 | NUR ---
PT. CURRENTLY A RESIDENT AT [facility] FAXED CLINICAL UPDATE TO FACILITY AND LEFT MSG WITH NICHO IN ADM, OF UPDATE FAXED. DCP TO FOLLOW.
--- NOTE | 2018-11-27 04:20 | NUR ---
ASSUMED PT CARE AT 1900. PT CONFUSED, RESPONDS BEST TO YES/NO QUESTIONS, ABLE TO FOLLOW SIMPLE COMMANDS. VITAL SIGNS STABLE, ASSESSMENT CHARTED. PRECATH VOLUME PER BLADDER SCAN WAS ABOUT 1000ML. PT STRAIGHT CATH, 1300ML OUT. NO COMPLAINTS OF PAIN. RESTED WELL THROUGH THE NIGHT. HOURLY ROUNDING COMPLETED. Q2H TURNS. PROGRESSING TOWARD PLAN OF CARE. WILL CONTINUE TO MONITOR.
[2018-11-27 04:38] VITALS: BP 129/74
[2018-11-27 05:19] LABS: ABSOLUTE NEUTROPHILS 4.2 thou/uL (1.4-8.2); EOSINOPHILS 5.5 % (0.0-3.0); HEMATOCRIT 35.7 % (42.0-52.0); MCH 31.5 pg (26.0-34.0); MCHC 33.5 g/dL (28.0-37.0); MCV 93.9 fL (80.0-100.0); MONOCYTES 9.8 % (1.0-8.0); PLATELET COUNT 266 thou/uL (150-400); POLYS 53.7 % (36.0-66.0); RBC 3.81 mil/uL (4.50-6.00); WBC 7.8 thou/uL (4.0-11.0)
[2018-11-27 05:32] LABS: CALCIUM 8.7 mg/dL (8.5-10.1); POTASSIUM 3.6 mmol/L (3.5-5.1)
[2018-11-27 08:00] VITALS: BP 123/71
--- NOTE | 2018-11-27 12:29 | NUR ---
Bladder status - Bladder scan show 346ml at 6hrs from last cath. Straight cath produced 300 out. Pt unable to urinate when instructed. Flomax given per speech this am as pt high risk aspiration. Will await diet orders.
[2018-11-27 16:00] VITALS: BP 127/73
[2018-11-27 19:08] VITALS: BP 130/83
[2018-11-28 04:40] VITALS: BP 138/62
[2018-11-28 05:40] LABS: HEMOGLOBIN 12.1 gm/dL (14.0-18.0); MCHC 34.5 g/dL (28.0-37.0); MCV 92.8 fL (80.0-100.0); RBC 3.77 mil/uL (4.50-6.00); RDW 12.7 % (10.5-14.5); WBC 5.8 thou/uL (4.0-11.0)
[2018-11-28 05:54] LABS: CALCIUM 8.7 mg/dL (8.5-10.1); POTASSIUM 3.5 mmol/L (3.5-5.1)
--- NOTE | 2018-11-28 07:01 | NUR ---
ASSUMED PT CARE AT 1900 WITH NO SIGN OF DISTRESS NOTED IN PT. PT IS ALERT AND DENIES ANY PAIN. SCHEDULED MEDS ADMINISTERED TO PT. VITAL SIGNS STABLE. NURSING TO CONTINUE POC. DENIES ANY FURTHER NEEDS AT THIS TIME.
[2018-11-28 07:07] VITALS: BP 130/73
[2018-11-28 13:00] VITALS: BP 136/80
[2018-11-28 16:00] VITALS: BP 133/85
[2018-11-28 20:30] VITALS: BP 130/82
[2018-11-29 04:30] VITALS: BP 136/79
--- NOTE | 2018-11-29 04:47 | NUR ---
AWAKE ORIENTED TO SELF, BIRTHDATE AND PLACE. REORIENTED TO MONTH AND YEAR, OBEYS COMMAND. MODERATE BOOT TURNER ON BOTH HANDS.ABLE TO RAISE BOTH LEGS AGAINST GRAVITY. DEMNIES PAIN, SR ON THE MONITOR. COARSE LUNG SOUNDS, ON ROOM AIR, NON PRODUCTIVE COUGH NOTED. COLOSTOMY BAG CLEAN AND INTACT. INCONTINENT WITH BLADDER. NSS + 20 MEQS KCL AT 50 ML/HOUR INFUSING WELL AT THE LEFT FOREARM. TURNING EVERY 2 HOURS DONE, ORAL CARE RENDERED. MAINTAINED ON ASPIRATION AND FALL PRECAUTION. FF UP POC.
[2018-11-29 05:50] LABS: ABSOLUTE NEUTROPHILS 3.1 thou/uL (1.4-8.2); BASOPHILS 0.7 % (0.0-2.0); EOSINOPHILS 8.7 % (0.0-3.0); HEMATOCRIT 36.4 % (42.0-52.0); HEMOGLOBIN 12.3 gm/dL (14.0-18.0); LYMPHOCYTES 28.7 % (24.0-44.0); MCH 31.6 pg (26.0-34.0); MCHC 33.9 g/dL (28.0-37.0); MCV 93.1 fL (80.0-100.0); MONOCYTES 10.2 % (1.0-8.0); PLATELET COUNT 299 thou/uL (150-400); POLYS 51.7 % (36.0-66.0); RBC 3.91 mil/uL (4.50-6.00)
[2018-11-29 05:56] LABS: CALCIUM 8.8 mg/dL (8.5-10.1); CREATININE 0.8 mg/dL (0.7-1.3); POTASSIUM 3.8 mmol/L (3.5-5.1)
[2018-11-29 07:26] VITALS: BP 117/65
[2018-11-29] MEDS ORDERED: AUGMENTIN 875-1 EACH PO (07:54)
[2018-11-29] MEDS ORDERED: ADULT TUSS100 MG/5 M PO (07:55)
[2018-11-29] MEDS ORDERED: ENOXAPARIN40 MG/0.1 SUBQ (07:55)
[2018-11-29] MEDS ORDERED: TOBRAMYCIN-DEXAM5 ML OPHTHALMIC (07:56)
[2018-11-29 11:38] VITALS: BP 141/83
[2018-11-29 15:44] VITALS: BP 103/74
[2018-11-29 20:45] VITALS: BP 135/77
[2018-11-30 04:52] VITALS: BP 133/90
--- NOTE | 2018-11-30 07:41 | NUR ---
11/29/18 ASSESSMENTS COMPLETED AND DOCUMENTED. PT WAS TO DISCHARGE TO [facility]. WHEN FAMILY ARRIVED THEY DISCUSSED WITH THIS NURSE THE DESIRE FOR HOSPICE CARE FOR PT. PHYSICIAN AWARE AND CASE [facility] EVAL. MEJIA WAS PLACED DUE TO RETENTION PER DOCTORS ORDER. NO S/SX OF CARDIAC OR RESP DISTRESS. NO COMPLAINTS VOICED. PT ATE WELL, HAD A SMALL SMEAR OF BM AT END OF SHIFT. WILL CONTINUE TO MONITOR.
--- NOTE | 2018-11-30 07:57 | NUR ---
MEJIA DC DUE TO PT PULLING AT CATH. WILL CONTINUE TO MONITOR.
[2018-11-30 08:00] VITALS: BP 115/73
[2018-11-30 12:00] VITALS: BP 112/84
--- NOTE | 2018-11-30 13:41 | NUR ---
Sp with dtr Sofya who reports family is interested in Hospice house evaluation today. Sent referral to Hospice to [facility] they are at hospital at this time meeting with patient and dtr Sofya.
--- NOTE | 2018-11-30 15:19 | NUR ---
TENATIVE PLAN FOR DC TO [facility] YESTERDAY. HOWEVER FAMILY REQUESTED HOSPIE INFO FOR [facility] [place]. HOSPICE HOUSE LIASON CLARISA MET WITH PATIENT AND FAMILY. LIASON REPORTS FAMILY WITH PLAN TO RETURN TO [facility] THEN TRANSITION TO POSSIBLE HOSPICE AT A LATER DATE. PREFER DC TO SKILLED IN AM. THIS [facility] AND [facility] LIASON MET WITH FAMILY, THEY WANT NEW BED AT [facility], BREATHING TX ADDED TO ORDERS, QUESTION HOW HIS CONDITION IS IMPROVING, HOW HE IS DOING AFTER STARTING FLOMAX. UPDATED PHYS WITH MESSAGE, REQUESTED RN ADDRESS URINE OUTPUT. TENATIVE PLAN FOR SKILLED IN AM.
[2018-11-30 15:37] VITALS: BP 106/71
[2018-11-30 19:16] VITALS: BP 115/77
[2018-12-01 03:08] VITALS: BP 123/84
--- NOTE | 2018-12-01 07:09 | NUR ---
ASSUME CARE 1900. PT/VITALS STABLE. DENEIS ANY PAIN. PT IS A/O TO PERSON ONLY DIFFICULTY COMMUNICATING NEEDS WBUT FOLLOWS COMMANDS. SPEECH IS A BIT SLURRED AND VERY DIFFICULT TO UNDERSTAND. NO URINE OUTPUT NOTED THROUGH THE NIGHT. BLADDER SCAN SHOWS 541ML IN BLADDER. STRAIGHT CATH PATIENT 500ML OUT. MIGHT NEEDS SOME PT/OT EVAL AND TX. PLAN IS POSSIBLE DISCHARGE TO [facility]. WILL CONTINUE TO FOLLOW WITH POC
[2018-12-01 11:05] VITALS: BP 115/70
--- NOTE | 2018-12-01 13:49 | NUR ---
plan dc to [facility] today. Chart copy ordered. Orders faxed to [facility] with confirmation of rec orders. Stretcher van for 1500, requested to ride and Secure transport agreeable. Notified dtr Veda of dc and timeframe.
--- NOTE | 2018-12-01 15:33 | NUR ---
ASSESSMENT COMPLETED AND DOCUMENTED. NO S/SX OF CARDIAC OR RESP DISTRESS. NO COMPLAINTS VOICED. TELE AND IV REMOVED. TRANSPORTATION PICKED UP PT AND TRANSPORTED TO [facility].
== END 2018-12-01 15:36 | DRG 177 ==
LOC: ER 20:08 → 2N 23:44 → EROBS 23:44 → 2N 11-26 01:31
PROVIDERS: Nurse Practitioner Adult Health; Student in an Organized Health Care Education/Training Program; ADMIT Internal Medicine
DX: J69.0 Pneumonitis due to inhalation of food and vomit (principal); J96.90 Respiratory failure, unspecified, unspecified whether with hypoxia or hypercapnia; G23.1 Progressive supranuclear ophthalmoplegia [Steele-Richardson-Olszewski]; G20 Parkinson's disease; E87.6 Hypokalemia; Y95 Nosocomial condition; F02.80 Dementia in other diseases classified elsewhere, unspecified severity, without behavioral disturbance, psychotic disturbance, mood disturbance, and anxiety; Z66 Do not resuscitate; I10 Essential (primary) hypertension; K21.9 Gastro-esophageal reflux disease without esophagitis; N40.0 Benign prostatic hyperplasia without lower urinary tract symptoms; Z93.3 Colostomy status; Z79.899 Other long term (current) drug therapy
CPT/HCPCS: 10081